=== PATIENT | female | born 1960 | race Caucasian/White ===

== ENCOUNTER 2018-11-25 09:45 | Emergency (ER) | payer BC ==
[~2018-11-25] VITALS: Ht 162.6 cm; Wt 46.3 kg
[2018-11-25] MEDS ORDERED: ONDANSETRON IV *ER 4 MG/2 ML VIAL IV ONE (10:15)
[2018-11-25] MEDS ORDERED: IV NORMAL SALINE 1000 ML BAG IV ONE (10:15)
[2018-11-25 10:19] LABS: BASOPHILS % (AUTO) 0.2 % (0.0-2.0); EOSINOPHILS % (AUTO) 0.1 % (0.0-7.0); HEMATOCRIT 40.3 % (31.2-41.9); HEMOGLOBIN 13.2 g/dL (10.9-14.3); LYMPHOCYTES # (AUTO) 1.3 K/uL (20.0-40.0); LYMPHOCYTES % (AUTO) 9.3 % (20.5-51.5); MEAN CORPUSCULAR HGB CONC 33 g/dL (32.3-35.6); MEAN CORPUSCULAR VOLUME 91.4 fL (75.5-95.3); MONOCYTES # (AUTO) 0.6 K/uL (2.0-10.0); MONOCYTES % (AUTO) 4.4 % (0.0-11.0); PLATELET COUNT (AUTO) 233 K/uL (179-408); RED BLOOD CELL COUNT(AUTO) 4.41 MIL/uL (3.63-4.92)
[2018-11-25 10:23] LABS: CARBON DIOXIDE 25 mmol/L (21-32); CHLORIDE 102 mmol/L (98-107); CREATININE 0.7 mg/dL (0.6-1.3); GLUCOSE 88 mg/dL (74-106); POTASSIUM 3.6 mmol/L (3.5-5.1); UREA NITROGEN, BLOOD 10 mg/dL (7-18)
[2018-11-25 10:24] LABS: *BILIRUBIN,URIN NEGATIVE (NEGATIVE); *BLOOD, URINE 2+ (NEGATIVE); *CLARITY,URINE CLEAR (CLEAR); *COLOR,URINE LIGHT YELLOW (YELLOW); *KETONES,URINE NEGATIVE (NEGATIVE); *UROBILINOGEN,URINE 0.2 E.U./dl (NORMAL); LEUKOCYTE ESTERASE ,URINE NEGATIVE (NEGATIVE); NITRITE, URINE NEGATIVE (NEGATIVE); PH,URINE 5.5 (5.0-8.0); UGLUCOSE NEGATIVE (NEGATIVE)
[2018-11-25 10:28] LABS: ALANINE AMINOTRANSFERASE 20 U/L (14-59); ALKALINE PHOSPHATASE 111 U/L (50-136); ASPARTATE AMINOTRANSFERASE 14 U/L (15-37); BILIRUBIN,DIRECT < 0.1 mg/dL (0.0-0.2); BILIRUBIN,TOTAL 0.2 mg/dL (0.2-1.0); LIPASE 97 U/L (73-393); TOTAL PROTEIN, SERUM 7.7 g/dL (6.4-8.2)
[2018-11-25] MEDS ORDERED: ONDANSETRON 4 MG/2 ML VIAL ONE (10:30)
[2018-11-25 10:36] LABS: BACTERIA,URINE NONE SEEN /HPF (NONE SEEN); SQUAMOUS EPITHELIAL CELL,UR FEW /HPF (NONE SEEN); WBC,URINE 0-3 /HPF (0-3)
[2018-11-25] MEDS ORDERED: ALPRAZOLAM 0.25 MG TABLET ONE (10:56)
[2018-11-25] MEDS ORDERED: ALPRAZOLAM 0.25 MG TABLET PO ONE (11:00)
--- NOTE | 2018-11-25 13:23 | NUR ---
Patient discharged to home in stable conditon. Written and verbal after care instructions given. Patient verbalizes understanding of instructions.pt wheel chaired to friends car in stable condition
--- NOTE | 2018-11-25 13:24 | NUR ---
a copy of all the studies provided for pt.
[2018-11-25 13:26] VITALS: BP 119/61
== END 2018-11-25 13:30 | disposition home or self-care (01) ==
LOC: ER 09:45
DX: S82.302A Unspecified fracture of lower end of left tibia, initial encounter for closed fracture (principal); S09.90XA Unspecified injury of head, initial encounter; R10.84 Generalized abdominal pain; R55 Syncope and collapse; Z88.2 Allergy status to sulfonamides; X58.XXXA Exposure to other specified factors, initial encounter; Y93.89 Activity, other specified; Y92.89 Other specified places as the place of occurrence of the external cause; Y99.8 Other external cause status
CPT/HCPCS: 29515; 36415; 71045; 73590; 73610; 73630; 74176; 80048; 80076; 81000; 81001; 83690; 84484; 85025; 85730; 93005; 96360; 99284; J2405; 70030-TC; A4663; J7030

== ENCOUNTER 2018-11-27 22:53 | Emergency (ER) | payer BC ==
[~2018-11-27] VITALS: Ht 162.6 cm; Wt 46.3 kg
--- NOTE | 2018-11-27 23:13 | NUR ---
Patient wheeled in via w/c. Speech clear, speaks in complete sentences. No neuro deficits. A/Ox4. Patient came for c/o n/v and "lean to the left". Requesting for CT scan of brain/head. Respiratory even and unlabored, no cough no sob. No cardiovascular distress noted, all pulses palpable. No distress noted. Patient in bed at lowest position, sr upx2, call light within reach. Fall precautions implemented per protocol.
--- NOTE | 2018-11-28 00:12 | NUR ---
Patient discharged to home in stable conditon. Written and verbal after care instructions given. Patient verbalizes understanding of instructions. Patient wheeled out in w/c due to leaving her crutches at home.
[2018-11-28 00:55] VITALS: BP 100/78
== END 2018-11-28 00:56 | disposition home or self-care (01) ==
LOC: ER 22:53
DX: S82.302A Unspecified fracture of lower end of left tibia, initial encounter for closed fracture (principal); F07.81 Postconcussional syndrome; Z88.2 Allergy status to sulfonamides; W19.XXXA Unspecified fall, initial encounter; Y93.89 Activity, other specified; Y92.89 Other specified places as the place of occurrence of the external cause; Y99.8 Other external cause status
CPT/HCPCS: 70450; 72125; A4663